=== PATIENT | male | born 1950 | race Caucasian/White ===

== ENCOUNTER 2018-08-12 14:15 | Emergency (ER) | payer OTHER ==
[2018-08-12] MEDS: ONDANSETRON (ODT) 4 MG TAB ODT (19:24)
[2018-08-12] MEDS: HYDROmorphONE 2 MG/ML SYG IM (19:25)
[2018-08-12] MEDS: KETOROLAC 30 MG INJ IM (19:25)
[2018-08-12 20:13] LABS: URINE BLOOD (Dip) POC 2+ (NEGATIVE); URINE KETONES (Dip) POC 1+ (NEGATIVE); URINE LEUKOCYTE EST (Dip) POC Negative (NEGATIVE); URINE NITRITE (Dip) POC Negative (NEGATIVE); URINE TOTAL PROTEIN POC Trace (NEGATIVE)
[2018-08-12 20:13] LABS: URINE PH (Dip) POC 5.5 (5.0-8.5)
== END 2018-08-12 20:33 | disposition home or self-care (01) ==
LOC: E/R 14:15
DX: N20.0 Calculus of kidney (principal); I10 Essential (primary) hypertension; Z79.82 Long term (current) use of aspirin; Z87.891 Personal history of nicotine dependence
CPT/HCPCS: 81003; 96372; 99284-25